=== PATIENT | male | born 1955 | race Caucasian/White ===

== ENCOUNTER 2018-09-18 06:25 | Inpatient (IN) | payer BC, OTHER ==
[2018-09-18] MEDS: CEFAZOLIN 2 GM/50 ML (PMX) 50 ML IVPB (06:00)
[2018-09-18] MEDS: TRANEXAMIC ACID 1,000 MG in DEXTROSE 5% 100 ML IVPB (06:00)
[~2018-09-18 06:25] MED LIST: BUPIVACAINE 0.5% (SDV) 30 ML, morphine SULFATE (PF) 8 MG, EPINEPHrine 0.3 MG, KETOROLAC... IRR
[2018-09-18] MEDS: GABAPENTIN 300 MG CAP PO ×2 (06:58→20:16)
[2018-09-18] MEDS: DEXAMETHASONE 1 MG TAB PO (06:58)
[2018-09-18] MEDS ORDERED: ROPIVACAINE 0.5 % 30 ML VIAL (07:00)
[2018-09-18] MEDS ORDERED: MIDAZOLAM 1 MG/ML 2 ML INJ (07:04)
[2018-09-18 07:39] LABS: INR 0.96; PROTIME 12.9 Sec (11.9-14.9)
[2018-09-18] MEDS ORDERED: DEXAMETHASONE 4 MG/ML 5 ML INJ ×2 (07:39→09:48)
[2018-09-18] MEDS ORDERED: ONDANSETRON 4 MG INJ ×2 (07:40→09:48)
[2018-09-18 07:49] LABS: PARTIAL THROMBOPLASTIN TIME 25.2 Sec (23.0-35.0)
[2018-09-18] MEDS ORDERED: GLYCOPYRROLATE 0.4 MG INJ (08:33)
[2018-09-18] MEDS ORDERED: NEOSTIGMINE 3 MG/3 ML SYRINGE (08:33)
[2018-09-18] MEDS ORDERED: PROPOFOL 20 ML (08:48)
[2018-09-18] MEDS ORDERED: POLYMYXIN/BACITRACIN 1L IRRIG (09:21)
[2018-09-18] MEDS ORDERED: BUPIVACAINE 0.5%/EPI (SDV) 30 ML INJ (09:21)
[2018-09-18] MEDS ORDERED: CEFAZOLIN 1 GM INJ (09:26)
[2018-09-18] MEDS ORDERED: ROCURONIUM 50 MG INJ (09:26)
[2018-09-18] MEDS ORDERED: ZOLPIDEM 5 MG TAB PO (11:00)
[2018-09-18] MEDS ORDERED: NACL 0.9% 3 ML SYG IV (11:00)
[2018-09-18] MEDS ORDERED: oxyCODONE 5 MG TAB PO (11:00)
[2018-09-18] MEDS ORDERED: ONDANSETRON 4 MG INJ IV ×2 (11:00→11:30)
[2018-09-18] MEDS ORDERED: DIPHENHYDRAMINE 50 MG INJ IV ×2 (11:00→11:30)
[2018-09-18] MEDS ORDERED: LOPERAMIDE 2 MG CAP PO (11:00)
[2018-09-18] MEDS ORDERED: KETOROLAC 30 MG INJ (11:02)
[2018-09-18] MEDS ORDERED: MEPERIDINE 25 MG INJ IV (11:30)
[2018-09-18] MEDS ORDERED: hydrALAzine 20 MG INJ IV (11:30)
[2018-09-18] MEDS ORDERED: EPHEDrine SULFATE 50 MG/5 ML SYG IV (11:30)
[2018-09-18] MEDS ORDERED: LABETALOL HCL 20MG INJ IV (11:30)
[2018-09-18] MEDS ORDERED: HYDROmorphONE 1 MG/5 ML IV SYRINGE IV ×2 (11:30)
[2018-09-18] MEDS ORDERED: MIDAZOLAM 1 MG/ML 2 ML INJ IV (11:30)
[2018-09-18] MEDS ORDERED: OXYCODONE/ACETAMINOPHEN (5/325) TAB PO ×2 (11:30)
[2018-09-18] MEDS ORDERED: METOCLOPRAMIDE 10 MG INJ IV (11:30)
[2018-09-18] MEDS ORDERED: FENTAnyl 50 MCG/ML VIAL IV ×2 (11:30)
[2018-09-18] MEDS ORDERED: ALBUTEROL 0.083% (NEB) 2.5 MG/3 ML AMP HHN (11:30)
[2018-09-18] MEDS: HYDROmorphONE 1 MG/5 ML IV SYRINGE IV (11:46)
[2018-09-18] MEDS: KETOROLAC 15 MG INJ IV ×2 (11:47→18:30)
[2018-09-18] MEDS: CEFAZOLIN 1 GM/50 ML (PMX) 50 ML IVPB ×2 (12:08→18:30)
[2018-09-18] MEDS: TRANEXAMIC ACID 1,000 MG in SOD CHLORIDE 0.9% 100 ML IVPB (12:26)
[2018-09-18] MEDS: FENTAnyl 50 MCG/ML VIAL IV ×2 (12:30→12:40)
[2018-09-18] MEDS: ACETAMINOPHEN 500 MG TAB PO ×2 (13:43→18:30)
[2018-09-18] MEDS: DEXAMETHASONE 2 MG TAB PO ×2 (13:44→18:30)
[2018-09-18] MEDS: HYDROmorphONE 1 MG/ML SYG IV (13:44)
[2018-09-18] MEDS: oxyCODONE 5 MG TAB PO ×2 (16:09→20:11)
[2018-09-18] MEDS: SENNA/DOCUSATE NA (8.6MG/50MG) TAB PO (20:16)
[2018-09-18] MEDS: ATORVASTATIN 40 MG TAB PO (20:17)
[2018-09-18] MEDS: METOPROLOL 25 MG TAB PO (20:18)
[2018-09-18] MEDS ORDERED: ATORVASTATIN 10 MG TAB PO (21:00)
[2018-09-19] MEDS: DEXAMETHASONE 2 MG TAB PO ×2 (00:08→05:32)
[2018-09-19] MEDS: ACETAMINOPHEN 500 MG TAB PO ×2 (00:08→05:32)
[2018-09-19] MEDS: oxyCODONE 5 MG TAB PO ×4 (00:10→09:40)
[2018-09-19] MEDS: MAGNESIUM HYDROXIDE 30ML CUP PO (00:13)
[2018-09-19] MEDS: CEFAZOLIN 1 GM/50 ML (PMX) 50 ML IVPB (03:35)
[2018-09-19] MEDS: METOPROLOL 25 MG TAB PO ×2 (08:59→09:00)
[2018-09-19] MEDS: SENNA/DOCUSATE NA (8.6MG/50MG) TAB PO (08:59)
[2018-09-19] MEDS: LISINOPRIL 20 MG TAB PO (09:00)
[2018-09-19] MEDS: KETOROLAC 15 MG INJ IV (09:00)
== END 2018-09-19 10:10 | disposition home or self-care (01) | DRG 483 ==
LOC: REC 06:25 → MS1 12:41
PROC: 0RRJ00Z Replacement of Right Shoulder Joint with Reverse Ball and Socket Synthetic Substitute, Open Approach (ICD-10-PCS; principal; 2018-09-18 08:30)
PROC: 0LS30ZZ Reposition Right Upper Arm Tendon, Open Approach (ICD-10-PCS; 2018-09-18 08:30)
PROC: 0PB50ZZ Excision of Right Scapula, Open Approach (ICD-10-PCS; 2018-09-18 08:30)
DX: M19.111 Post-traumatic osteoarthritis, right shoulder (principal); M19.011 Primary osteoarthritis, right shoulder; S46.211A Strain of muscle, fascia and tendon of other parts of biceps, right arm, initial encounter; I10 Essential (primary) hypertension; G47.30 Sleep apnea, unspecified; E78.5 Hyperlipidemia, unspecified; L73.9 Follicular disorder, unspecified
CPT/HCPCS: 73030-RT; 85610; 85730; 86850; 86900; 86901; 88304; 88311; 97161